=== PATIENT | male | born 1985 | race Caucasian/White ===

== ENCOUNTER 2018-06-28 19:03 | Emergency (ER) | payer BC ==
[~2018-06-28] VITALS: Ht 172.7 cm; Wt 77.1 kg
[2018-06-28 19:22] VITALS: Ht 172.7 cm; Wt 77.1 kg
[2018-06-28 21:14] VITALS: BP 154/91
== END 2018-06-28 21:14 | disposition home or self-care (01) ==
LOC: ED 19:03
DX: S62.337A Displaced fracture of neck of fifth metacarpal bone, left hand, initial encounter for closed fracture (principal); R20.0 Anesthesia of skin; I10 Essential (primary) hypertension; W50.0XXA Accidental hit or strike by another person, initial encounter; Y93.67 Activity, basketball; Y92.89 Other specified places as the place of occurrence of the external cause; Y99.8 Other external cause status

== ENCOUNTER 2018-07-04 15:25 | Emergency (ER) | payer BC | END 2018-07-04 19:08 | disposition home or self-care (01) | LOC: ED 15:25 ==